=== PATIENT | male | born 2000 | race African-American/Black ===

== ENCOUNTER 2019-06-21 11:52 | Emergency (ER) | payer OTHER ==
[2019-06-21] MEDS ORDERED: TETRACAINE HCL 0.5% OPH SOLN 4 ML OS ONE (12:26)
--- NOTE | 2019-06-21 12:29 | ER Document Report ---
ED Medical Screen (RME) - General Chief Complaint: Eye Problem Stated Complaint: FOREIGN BODY IN EYE Time Seen by Provider: 06/21/19 12:24 Primary Care Provider: AHMET PIZARRO [Primary Care Provider] - Follow up as needed Mode of Arrival: Ambulatory Information source: Patient Notes: 19-year-old male presented to ED for complaint of pain to his left eye. He states he was at work using a saw does not know if he got wood or metal in the eye and now he has some pain in the eye and is painful to open his eye. Patient is alert oriented respirations regular and unlabored speaking in full sentences walks with even steady gait. I have greeted and performed a rapid initial assessment of this patient. A comprehensive ED assessment and evaluation of the patient, analysis of test results and completion of medical decision making process will be conducted by an additional ED providers. Dictation of this chart was performed using voice recognition software; therefo re, there may be some unintended grammatical errors. TRAVEL OUTSIDE OF THE [place] IN LAST 30 DAYS: No - Related Data Allergies/Adverse Reactions: No Known Allergies Allergy (Verified 06/21/19 12:22) Physical Exam - Vital signs Vitals: Temp Pulse Resp BP Pulse Ox 98.6 F 66 16 140/67 H 100 06/21/19 12:08 06/21/19 12:08 06/21/19 12:08 06/21/19 12:08 06/21/19 12:08 Course - Vital Signs Vital signs: Temp Pulse Resp BP Pulse Ox 98.6 F 66 16 140/67 H 100 06/21/19 12:08 06/21/19 12:08 06/21/19 12:08 06/21/19 12:08 06/21/19 12:08 Doctor's Discharge - Discharge Referrals: AHMET PIZARRO [Primary Care Provider] - Follow up as needed
[2019-06-21] MEDS ORDERED: PROMETHAZINE HCL 25 MG TABLET PO ONE (16:46)
[2019-06-21] MEDS ORDERED: IBUPROFEN 800 MG TABLET PO ONE (16:46)
[2019-06-21] MEDS ORDERED: ERYTHROMYCIN 0.5% OPH OINT 1 GM UNIT DOSE OS ONE (16:46)
--- NOTE | 2019-06-21 16:50 | ER Document Report ---
ED Eye Complaint - General Chief Complaint: Eye Problem Stated Complaint: FOREIGN BODY IN EYE Time Seen by Provider: 06/21/19 12:24 Primary Care Provider: AHMET PIZARRO [NO LOCAL MD] - Follow up as needed ALEC DOS SANTOS DO [ACTIVE STAFF] - Follow up in 3-5 days Mode of Arrival: Ambulatory Notes: This is a pleasant 19-year-old -Indian male presents emergency department chief complaint of pain in the left eye. Patient states that he was using a saw working on a deck. Did not have eye protection on. Got something in his eye. Thinks that he got it out but still feels like something is in the eye. Large amount of tearing. No other issues. Up-to-date on his tetanus. TRAVEL OUTSIDE OF THE [place] IN LAST 30 DAYS: No - HPI Onset: Just prior to arrival Occurred at: Work Severity: Moderate Pain Level: 4 Exposure: Projectile Safety glasses worn: No Contact lenses worn: No Associated symptoms: Pain, Other - Excessive tearing of the left eye. - Related Data Allergies/Adverse Reactions: No Known Allergies Allergy (Verified 06/21/19 12:22) Past Medical History - General Information source: Patient - Social History Smoking Status: Never Smoker Chew tobacco use (# tins/day): No Frequency of alcohol use: None Drug Abuse: Marijuana Family History: Other - No history of significant high pathology Patient has suicidal ideation: No Patient has homicidal ideation: No - Medical History Medical History: Negative Renal/ Medical History: Denies: Hx Peritoneal Dialysis Review of Systems - Review of Systems Constitutional: denies: Chills, Fever, Weakness EENT: See HPI, Eye pain, Blurred vision, Tearing. denies: Eye discharge Cardiovascular: denies: Chest pain, Palpitations, Heart racing Respiratory: denies: Cough, Short of breath, Wheezing Skin: denies: Lesions, Rash Physical Exam - Vital signs Vitals: Temp Pulse Resp BP Pulse Ox 98.6 F 66 16 140/67 H 100 06/21/19 12:08 06/21/19 12:08 06/21/19 12:08 06/21/19 12:08 06/21/19 12:08 Interpretation: Normal - General General appearance: Appears well In distress: None - HEENT Head: Normocephalic Notes: Is normal. Pupillary response normal. Left eye normal pupillary response. Extraocular muscles are intact bilaterally. The left eye demonstrates excessive amount of tearing and moderate amount of redness. No matting. Inversion of eyelids reveals no foreign bodies. Inspection with slit-lamp reveals small corneal abrasion at the 7 o'clock position of the iris. No foreign body was seen on high magnification. No dendritic lesions were present. - Respiratory Respiratory status: No respiratory distress Chest status: Nontender Breath sounds: Normal Chest palpation: Normal - Cardiovascular Rhythm: Regular Heart sounds: Normal auscultation Murmur: No - Neurological Cognition: Normal Orientation: AAOx4 - Skin Skin Temperature: Warm Skin Moisture: Dry Skin Color: Normal Course - Re-evaluation Re-evalutation: 06/21/19 20:22 Patient appears to have a small corneal abrasion. Will start some erythromycin ophthalmic. Will give some ibuprofen and continue on erythromycin. Ophthalmology follow-up. I was unable to find any retained foreign bodies at this time. Patient seems much more comfortable. I did give him medication while in the ER. Will DC at this time in stable condition. - Vital Signs Vital signs: Temp Pulse Resp BP Pulse Ox 99.2 F 53 L 16 123/60 100 06/21/19 16:55 06/21/19 16:55 06/21/19 16:55 06/21/19 16:55 06/21/19 16:55 Discharge - Discharge Clinical Impression: Corneal abrasion, left Qualifiers: Encounter type: initial encounter Qualified Code(s): S05.02XA - Injury of conjunctiva and corneal abrasion without foreign body, left eye, initial encounter Condition: Good Disposition: HOME, SELF-CARE Instructions: Corneal Abrasion ([facility]) Prescriptions: Erythromycin Base [Erythromycin Oph 1 Gm Oint Ud] 1 applic OS Q6H 7 Days #1 tube Ibuprofen [Motrin 800 mg Tablet] 800 mg PO Q8H PRN 10 Days #30 tab PRN Reason: For Pain Scale 3-4 Forms: Return to Work Referrals: MOIRA,NO [NO LOCAL MD] - Follow up as needed ALEC DOS SANTOS DO [ACTIVE STAFF] - Follow up in 3-5 days
[2019-06-21 16:57] VITALS: BP 123/60
== END 2019-06-21 17:11 | disposition home or self-care (01) ==
LOC: ER 11:52
DX: S05.02XA Injury of conjunctiva and corneal abrasion without foreign body, left eye, initial encounter (principal); H57.12 Ocular pain, left eye; X58.XXXA Exposure to other specified factors, initial encounter; Y93.89 Activity, other specified; Y99.0 Civilian activity done for income or pay
CPT/HCPCS: 99283; J3490